=== PATIENT | female | born 1960 | race Two or more races ===

== ENCOUNTER → 2016-09-17 | Outpatient (CLI) | payer OTHER ==
--- NOTE | 2016-09-17 14:39 | RAD ---
Lumbar spine, 3 views, 09/17/2016: History: Chronic back pain There are 6 lumbar type vertebral bodies. The lumbar vertebral heights are well-maintained. The intervertebral disc spaces are well preserved. There are mild scattered marginal spurs. There are mild degenerative changes involving the facet joints bilaterally in the lower lumbar spine. Minimal aortic calcific plaquing is present. IMPRESSION: 1. Mild scattered degenerative changes. 2. No acute abnormality is detected.
== END | disposition home or self-care (01) ==
LOC: DXRAD 09:23
PROVIDERS: ATTEND Surgery
DX: M47.896 Other spondylosis, lumbar region (principal)
CPT/HCPCS: 72100

== ENCOUNTER → 2017-10-27 | Outpatient (CLI) | payer OTHER ==
[2017-10-28 04:09] LABS: HEMOGLOBIN A1C 7.9 % (4.8-5.6)
== END | disposition home or self-care (01) ==
LOC: SPEC 17:05
DX: E11.9 Type 2 diabetes mellitus without complications (principal)
CPT/HCPCS: 36415; 83036

== ENCOUNTER → 2018-05-09 | Outpatient (CLI) | payer OTHER ==
--- NOTE | 2018-05-09 13:10 | RAD ---
EXAM: Chest, 2 views. HISTORY: Cough. Cardiomegaly. COMPARISON: None. FINDINGS: 2 views the chest are obtained. There is no infiltrate, pleural effusion or pneumothorax. The heart is normal in size. There are few calcified granulomas. IMPRESSION: No acute pulmonary finding. Electronically signed by: Heather Segura MD (05/09/2018 1:08 PM) [facility]
== END | disposition home or self-care (01) ==
LOC: RAD 11:46
PROVIDERS: ATTEND Nurse Practitioner Family
DX: J84.10 Pulmonary fibrosis, unspecified (principal); R06.02 Shortness of breath; R05 Cough
CPT/HCPCS: 71046

== ENCOUNTER → 2019-03-27 | Outpatient (CLI) | payer OTHER ==
--- NOTE | 2019-03-27 16:39 | RAD ---
CT Abdomen and Pelvis without contrast History: Flank pain Technique: Noncontrast CT imaging was performed of the abdomen and pelvis. Multiplanar images are reviewed. Exposure: One or more of the following individualized dose reduction techniques were utilized for this examination: 1. Automated exposure control 2. Adjustment of the mA and/or kV according to patient size 3. Use of iterative reconstruction technique. Comparison: None Findings: There is no hydronephrosis of either kidney. There is no renal calculus on either side. No ureteral calculus is identified. There is strandy change of the bilateral perinephric fat somewhat greater on the right. There is a small 0.2 cm right lower lobe pulmonary nodule image 6 series 2, also another small about 0.1 to 0.2 cm right lower lobe nodule image 5. There is small 0.2 cm left lower lobe pulmonary nodule image 14, another somewhat more dense nodule of the left lower lobe 0.3 cm image 14. Accurate evaluation of abdominal visceral organs is limited without intravenous contrast. There is no obvious focal abnormality of the spleen, liver, or pancreas. Focus of round calcification in the splenic hilar region is probably sequela of calcified splenic artery aneurysm about 1.3 severe is in size from there is mostly calcified. There is a nodule of the inferior margin of the left adrenal gland about 2.2 cm in size, density measurements about 12 Hounsfield units. There has been cholecystectomy. There is no adrenal nodularity. Accurate evaluation of bowel is limited without oral contrast. There is no significant free air, free fluid, bowel dilatation. There is fat-containing ventral hernia in the abdomen best seen image 51 series 2, neck about 2.1 cm and transverse dimension of hernia sac about 4.2 cm, no internal bowel. Normal caliber appendix is visualized without adjacent inflammatory change. There is multilevel lumbar facet degenerative change. There is some fat in the inguinal canals bilaterally, no internal bowel. Impression: 1. There is no hydronephrosis or urolithiasis. There is nonspecific strandy change of the bilateral perinephric fat greater on the right. 2. There is a left adrenal nodule, density characteristics which approach, although not diagnostic of lipid rich adenoma. 3. There is fat-containing ventral abdominal hernia, no internal bowel. 4. There are a few small pulmonary nodules of the visualized lung bases bilaterally. If there are increased risk factors for neoplasm, dedicated chest CT to evaluate for nodules may be beneficial. Regarding the visualized nodules, no additional follow-up is needed if low risk factors for neoplasm, optional 12 follow-up if increased risk factors for neoplasm as per revised Fleischner guidelines. Electronically signed by: Arvin Nair MD (03/27/2019 4:37 PM) [facility]
== END | disposition home or self-care (01) ==
LOC: CT 10:51
PROVIDERS: ATTEND Nurse Practitioner Family
DX: K46.9 Unspecified abdominal hernia without obstruction or gangrene (principal); R91.8 Other nonspecific abnormal finding of lung field; Z90.49 Acquired absence of other specified parts of digestive tract; Z87.442 Personal history of urinary calculi
CPT/HCPCS: 74176

== ENCOUNTER → 2020-04-17 | Outpatient (CLI) | payer OTHER ==
--- NOTE | 2020-04-18 14:59 | RAD ---
DATE: 04/17/2020 9:16 AM EXAM: DIGITAL SCREEN BILAT W/CAD HISTORY: Screening COMPARISON: None. This is a new baseline. Bilateral full field craniocaudal and mediolateral oblique images were obtained using digital technique. This study was interpreted with the benefit of Computerized Aided Detection (CAD). FINDINGS: Breast Density: FATTY The Breast Parenchyma is primarily fatty replaced. Breast parenchyma level density A. No suspicious masses, microcalcifications or architectural distortion is present to suggest malignancy in either breast. The visualized axillae are unremarkable. IMPRESSION: No mammographic evidence of malignancy. BI-RADS CATEGORY: 1 NEGATIVE RECOMMENDED FOLLOW-UP: 12M 12 MONTH FOLLOW-UP Annual screening mammography is recommended, unless clinically indicated sooner based on symptoms or change in physical exam. PQRS compliance statement: Patient information was entered into a reminder system with a target due date for the next mammogram. Mammography is a sensitive method for finding small breast cancers, but it does not detect them all and is not a substitute for careful clinical examination. A negative mammogram does not negate a clinically suspicious finding and should not result in delay in biopsying a clinically suspicious abnormality. "Our facility is accredited by the [employer] Mammography Program."
== END ==
LOC: MAMMO 08:57
PROVIDERS: ATTEND Nurse Practitioner Family
DX: Z12.31 Encounter for screening mammogram for malignant neoplasm of breast (principal)
CPT/HCPCS: 77067

== ENCOUNTER → 2020-07-08 | Outpatient (CLI) | payer OTHER ==
--- NOTE | 2020-07-09 17:47 | CARD ---
MR#: [id number] Date of Study: 07/08/2020 Ordering Physician: AILYN ASHER, Referring Physician: AILYN ASHER, Tech: Lupis Crook, [facility] APPROVED REPORT EXAM: Two-dimensional and M-mode echocardiogram with Doppler and color Doppler. Other Information Quality : AverageHR: 73bpm Technically limited study due to body habitus. INDICATION Murmur RISK FACTORS Hypertension Hyperlipidemia Diabetes 2D DIMENSIONS RVDd3.4 (2.9-3.5cm)Left Atrium(2D)3.8 (1.6-4.0cm) IVSd1.4 (0.7-1.1cm)Aortic Root(2D)3.2 (2.0-3.7cm) LVDd4.3 (3.9-5.9cm)LVOT Diameter1.9 (1.8-2.4cm) PWd1.0 (0.7-1.1cm)LVDs2.7 (2.5-4.0cm) FS (%) 38.3 %SV58.3 ml LVEF(%)68.8 (>50%) Aortic Valve AoV Peak Robbie.281.2cm/sAoV VTI61.4cm AO Peak GR.31.6mmHgLVOT Peak Robbie.154.0cm/s LVOT VTI 33.83cmAO Mean GR.21mmHg LUCAS (VMAX)1.58ec6PIX (VTI)1.58cm2 Mitral Valve MV E Jzkrzzgx45.9cm/sMV DECEL INXG148cx MV A Ksbxmzyu214.2cm/sE/A Ratio0.9 Pulmonary Valve PV Peak Qsxqqido54.6cm/sPV Peak Grad.3mmHg Tricuspid Valve TR P. Idsnodqn700nb/sRAP UFWJGGQW1xgBr TR Peak Gr.56fcOcXZWJ48fiXt LEFT VENTRICLE The left ventricle is normal size. There is mild concentric left ventricular hypertrophy. The left ve ntricular systolic function is normal and the ejection fraction is within normal range. The Ejection Fraction is 55-60%. There is normal LV segmental wall motion. Transmitral Doppler flow pattern is Gra de I-abnormal relaxation pattern. RIGHT VENTRICLE The right ventricle is normal size. There is normal right ventricular wall thickness. The right ventr icular systolic function is normal. ATRIA The left atrium size is normal. The right atrium size is normal. The interatrial septum is intact wit h no evidence for an atrial septal defect or patent foramen ovale as noted on 2-D or Doppler imaging. AORTIC VALVE The aortic valve is calcified with restricted leaflet motion. Doppler and Color Flow revealed no sign ificant aortic regurgitation. There is mild to moderate valvular aortic stenosis. Calculated aortic v alve area is 32 cm2 with maximum pressure gradient of 21 mmHg and mean pressure gradient of 1.8 mmHg. MITRAL VALVE The mitral valve is normal in structure and function. There is no evidence of mitral valve prolapse. There is no mitral valve stenosis. Doppler and Color-flow revealed trace mitral regurgitation. TRICUSPID VALVE The tricuspid valve is normal in structure and function. Doppler and Color Flow revealed trace tricus pid regurgitation with an estimated PAP of 20 mmHg. There is no tricuspid valve stenosis. PULMONIC VALVE The pulmonic valve is not well visualized. Doppler and Color Flow revealed trace pulmonic valvular re gurgitation. There is no pulmonic valvular stenosis. GREAT VESSELS The aortic root is normal in size. The IVC is normal in size and collapses >50% with inspiration. PERICARDIAL EFFUSION There is no evidence of significant pericardial effusion. Critical Notification Critical Value: No <Conclusion> The left ventricular systolic function is normal and the ejection fraction is within normal range. Th e Ejection Fraction is 55-60%. There is normal LV segmental wall motion. The aortic valve is calcified with restricted leaflet motion. There is mild to moderate valvular aortic stenosis. Calculated aortic valve area is 32 cm2 with maxim um pressure gradient of 21 mmHg and mean pressure gradient of 1.8 mmHg. Signed by : Ailyn Asher, Electronically Approved : 07/09/2020 17:46:46
== END ==
LOC: ECHO 14:49
PROVIDERS: ATTEND Internal Medicine Cardiovascular Disease
DX: I35.0 Nonrheumatic aortic (valve) stenosis (principal); I13.10 Hypertensive heart and chronic kidney disease without heart failure, with stage 1 through stage 4 chronic kidney disease, or unspecified chronic kidney disease; E11.22 Type 2 diabetes mellitus with diabetic chronic kidney disease; N18.9 Chronic kidney disease, unspecified
CPT/HCPCS: 93306